=== PATIENT | male | born 1940 | race Caucasian/White ===

== ENCOUNTER → 2017-01-23 11:46 | Outpatient (CLI) | payer MEDICARE ==
[2015-07-13 06:37] VITALS: BMI 32.1
[~2017-01-23 11:46] MED LIST: ASPIRIN EC81 M1 PO; HYDROCHLOROTHIA25 MG PO; HYDROCODONE-APA1 TAB PO; LOTREL 10/20 CA1 CAP PO; LOTREL 5/20 MG1 CAP; MULTIPLE VITAMI1 TA1 PO; OSTEO BI-FLEX1 EAC1 PO; SYMBICORT 16010.2 GM INH; UROXATRAL10 MG PO
== END | disposition home or self-care (01) ==
LOC: D.RAD 11:46
DX: R06.00 Dyspnea, unspecified (principal)